=== PATIENT | female | born 1970 ===

== ENCOUNTER → 2017-03-09 10:55 | Outpatient (CLI) | payer OTHER ==
[~2017-03-09] VITALS: Ht 152.4 cm; Wt 78.9 kg
[~2017-03-09 10:55] MED LIST: ALLEGRA ALLERG180 MG PO; AMOX1TAB5 PO; AZITHROMYCIN1 G/PKT; CONEX TABLET1 EACH PO; FLONASE16 GM NS; GILTUSS TR TAB1 EACH PO; ZYRTEC10 M3 PO
== END | disposition home or self-care (01) ==
LOC: PPHC 10:55
DX: J02.9 Acute pharyngitis, unspecified (principal)